=== PATIENT | female | born 1985 | race Two or more races ===

== ENCOUNTER 2017-01-09 09:08 | Day surgery (SDC) | payer OTHER ==
[~2017-01-09] VITALS: Ht 160 cm; Wt 54.9 kg
[~2017-01-09 09:08] MED LIST: 0.9% Sodium Chloride 1,000 ML IV SCH; NORE-101 PO; Sodium Chloride LOK Flush 10 mL Syringe IV PRN; fentaNYL-PF 50 mCg/mL 2 mL Inj IVPUSH PRN
[2017-01-09 09:38] VITALS: BP 124/65; PULSE 79; RESP 12; O2SAT 99
[2017-01-09 11:23] VITALS: BP 105/53; PULSE 80; RESP 14; O2SAT 100
[2017-01-09 11:28] VITALS: BP 106/69; PULSE 72; RESP 16; O2SAT 99
--- NOTE | 2017-01-09 12:18 | ENDO ---
[address] [address] ENDOSCOPY PROCEDURE PATIENT: KRYSTINA PAYTON : 1985 MR#: [id number] ADMIT: 01/09/2017 JOB ID: [id number] DATE: 01/09/2017 PROCEDURE: Esophagogastroduodenoscopy (EGD). INDICATION: Globus sensation. The patient's ASA classification is one. Mallampati score is two. MEDICATIONS: 1. Versed 3 mg. 2. Fentanyl 50 mcg. INSTRUMENT USED: GIF H 180 J. PROCEDURE DETAILS: After informed consent was obtained, the patient was brought into the GI suite, where she was placed on oxygen via nasal cannula and monitored with continuous pulse oximeter, telemetry, and blood pressure monitoring. A time-out was performed, then she was placed in the left lateral decubitus position and medications were administered for sedation. A bite block was placed. The standard esophagogastroduodenoscopy scope was inserted through the bite block and advanced under direct visualization to the second portion of duodenum without difficulty. FINDINGS: 1. Normal appearing duodenal bulb, first and second portion. Multiple random biopsies were obtained. 2. Normal-appearing pylorus, antrum, and gastric body. 3. Retroflexed views in the gastric body revealed a normal-appearing cardia and fundus. 4. Multiple random biopsies were obtained throughout the antrum and body of the stomach. 5. The GE junction was irregular; however, there were prominent palisaded vessels in the distal esophagus suggestive of esophagitis. Multiple random biopsies were obtained. The remainder of the esophagus otherwise appeared unremarkable. IMPRESSION: Esophagitis. RECOMMENDATIONS: 1. Trial of omeprazole 20 mg daily. 2. Follow up in GI Clinic. COMPLICATIONS: None. ESTIMATED BLOOD LOSS: Less than 5 mL.
--- NOTE | 2017-01-10 13:24 | PATH ---
SURGICAL PATHOLOGY Attending Physician:Leandro Barney CASE STATUS: Signed Out PATIENT NAME: KRYSTINA PAYTON PID: [id number] : 1985 DATE COLLECTED:01/09/2017 19:43 SPECIMEN: 1: Gastric, Biopsy 2: Gastric, Biopsy 3: Esophagus, Biopsy 4: Duodenum, Biopsy CLINICAL HISTORY: 1). RANDOM GASTRIC BIOPSY 2). GASTRIC BODY BIOPSY 3). DISTAL ESOPHAGUS BIOPSY 4). DUODENUM BIOPSY FINAL DIAGNOSIS: 1.RANDOM GASTRIC BIOPSIES: MILD CHRONIC GASTRITIS INVOLVING FUNDIC MUCOSA. Negative for evidence of Helicobacter on H&E stain. Negative for intestinal metaplasia. Negative for dysplasia and malignancy. 2.GASTRIC BODY BIOPSY: MILD CHRONIC GASTRITIS INVOLVING FUNDIC MUCOSA. Negative for evidence of Helicobacter on H&E stain. Negative for intestinal metaplasia. Negative for dysplasia and malignancy. 3.DISTAL ESOPHAGUS BIOPSY: FRAGMENTS OF SQUAMOUS MUCOSA AND GASTRIC CARDIA-TYPE MUCOSA NEGATIVE FOR SPECIALIZED METAPLASIA OF CANTU' S-TYPE ESOPHAGUS. FOCAL PANCREATIC ACINAR METAPLASIA. Negative for dysplasia and malignancy. Negative for squamous intraepithelial eosinophils. 4.DUODENUM BIOPSY: FRAGMENTS OF NORMAL-APPEARING DUODENUM MUCOSA. Normal delicate mucosal villi present. Negative for significant inflammation, dysplasia and malignancy. ICD10 K29.70 GROSS DESCRIPTION: Received are four formalin-filled containers, each labeled with the patient' s name. 1. Received in formalin, labeled with the patient' s name and "random gastric BX", are three fragments of lindsay, soft tissue ranging in size from less than 0.1 cm by less than 0.1 cm by less than 0.1 cm to 0.1 x 0.1 x 0.1 cm. All fragments are totally submitted in cassette 1A. 2. Received in formalin, labeled with the patient' s name and "gastric body BX", are two fragments of lindsay, soft tissue ranging in size from 0.1 x 0.1 x 0.1 cm to 0.2 x 0.1 x 0.1 cm. All fragments are totally submitted in cassette 2A. 3. Received in formalin, labeled with the patient' s name and "distal esophagus BX", are two fragments of lindsay, soft tissue ranging in size from 0.1 x 0.1 x 0.1 cm to 0.2 x 0.1 x 0.1 cm. All fragments are totally submitted in cassette 3A. 4. Received in formalin, labeled with the patient' s name and "duodenum BX", are three fragments of lindsay, soft tissue ranging in size from 0.1 x 0.1 x 0.1 cm to 0.2 x 0.1 x 0.1 cm. All fragments are totally submitted in cassette 4A. ([id number]) MICRO DESCRIPTION: See diagnosis. ICD-9 CODES: CPT CODES: 1: 50142 2: 15342 3: 60300 4: 86423 Electronically Signed Out Ke Gomes MD [facility] [address], [place] [address] Technical component performed at [facility], [address], [place], [address]
== END 2017-01-09 23:59 | disposition home or self-care (01) ==
LOC: END 09:08
PROVIDERS: ATTEND Internal Medicine Gastroenterology
DX: K29.50 Unspecified chronic gastritis without bleeding (principal); R22.1 Localized swelling, mass and lump, neck; R05 Cough
CPT/HCPCS: 43239; 88305; 99152; J3010; J7030